=== PATIENT | male | born 1960 | race Caucasian/White ===

== ENCOUNTER 2021-02-22 21:58 | Emergency (ER) | payer OTHER, SELFPAY ==
[2021-02-22 22:15] VITALS: BP 156/79; PULSE 89; RESP 18; TEMP 36.3; O2SAT 97
--- NOTE | 2021-02-22 23:51 | ED.WOUNDLAC ---
HPI - Wound/Laceration General Chief Complaint: Wound/Laceration Stated Complaint: finger laceration Time Seen by Provider: 02/22/21 23:50 Source: patient Mode of arrival: ambulatory Limitations: no limitations History of Present Illness HPI narrative: Patient is a 60-year-old male presenting for evaluation of injury to his left thumb. Patient states that he was using a scraper in order to try to scrape some tape off of a desk at the local [employer] when the scraper slipped, injuring his left thumb. Patient reports a small cut next to the nail on the left thumb. He reports it was bleeding at the time because the patient is anticoagulated on warfarin. Patient is right-hand dominant. He denies any weakness or numbness. No pain with bending of the left thumb. No current active bleeding. No wrist pain. Patient is up-to-date on his tetanus. Related Data Allergies Allergy/AdvReac Type Severity Reaction Status Date / Time Unable to Assess Allergy Verified 02/23/21 00:14 Review of Systems Review of Systems: CONSTITUTIONAL: Denies fever CARDIOVASCULAR: Denies chest pain RESPIRATORY: Denies cough or dyspnea. GASTROINTESTINAL: Denies abdominal pain SKIN: Denies rash MUSCULOSKELETAL: Denies back pain NEUROLOGIC: Denies headache [facility] Social History Social History (Updated 02/23/21 @ 00:38 by Courtney Ding MD) Alcohol intake: never Substance use: never Occupation/Education: occupation Additional occupation/education comments: [employer] Gender identity (if verbalized by the patient): Male Exam Narrative: GENERAL: Awake, alert, conversant HEAD: Normocephalic, atraumatic. EYES: PERRLA and EOMI. ENT: Nares clear, no rhinorrhea or epistaxis. Mucous membranes moist. NECK: Supple. CHEST: No respiratory distress, breathing even and non labored HEART: Regular rate, sinus rhythm ABDOMEN:Non distended, non tender EXTREMITIES: Normal range of motion. No edema. SKIN: Warm, dry, no rash. Left thumb has some dried blood around the nailbed. There is no nail avulsion. No significant laceration. There is a small abrasion just inferior to the distal nail bed. No active bleeding. Radial pulse 2+. Intact sensation median, ulnar, radial nerve distribution. Intact PIP, DIP flexion and extension without limitation. NEURO:No focal deficits. Alert and oriented x3 Course Vital Signs Vital signs: Vital Signs Temperature 36.3 C L 02/22/21 22:15 Pulse Rate 89 02/22/21 22:15 Respiratory Rate 18 02/22/21 22:15 Blood Pressure 156/79 H 02/22/21 22:15 Pulse Oximetry 97 02/22/21 22:15 Temperature 36.3 C L 02/22/21 22:15 Pulse Rate 48 L 02/23/21 00:12 Respiratory Rate 20 02/23/21 00:12 Blood Pressure 135/80 02/23/21 00:12 Pulse Oximetry 97 02/23/21 00:12 Procedures Laceration Laceration 1: Date: 02/23/21 Time: 00:36 Site: hand (left thumb) Side (If applicable): left Size (cm): 0.5 Description: linear Depth: simple, single layer ====== Skin Level ====== Skin layer closed with: dermabond ====== Subcutaneous Layer ====== ====== Muscle Layer ====== ====== Tendon Layer ====== MDM - Wound/Laceration MDM Narrative Medical decision making narrative: Patient with a superficial injury to the nailbed of the left thumb. There is no large avulsion, no evidence to be concerning for acute osseous abnormality. This was not a crush injury. Patient has normal flexion and extension in that digit thus x-rays were not obtained. Patient is up-to-date on his tetanus. Will place Dermabond as there is no gaping laceration that would require stitches. Patient discharged home in stable condition. Differential Diagnosis Differential diagnosis: Likely laceration, abrasion and avulsion of skin Discharge Plan Discharge Clinical Impression: Laceration Patient Disposition: Home, Self-Care Condition: Stable Instructions: [place]
[2021-02-23 00:12] VITALS: BP 135/80; PULSE 48; RESP 20; O2SAT 97
== END 2021-02-23 00:45 | disposition home or self-care (01) ==
PROVIDERS: Emergency Provider Emergency Medicine
DX: S61.012A Laceration without foreign body of left thumb without damage to nail, initial encounter (principal); W27.8XXA Contact with other nonpowered hand tool, initial encounter; Y92.214 College as the place of occurrence of the external cause
CPT/HCPCS: 12001; 99282